=== PATIENT | male | born 1945 | race Caucasian/White ===

== ENCOUNTER → 2017-01-14 | Outpatient (CLI) | payer MEDICARE ==
[~2017-01-14] MED LIST: ACID CONTROL C1 EACH PO; ATOR40TA; ATOR40TA PO; BENADRYL25 MG PO; CITA20 PO; Citalopram HBr20 MG; DIPHEDRYL25 M1; LISI20; LISI20 PO; METPHE20; METPHE20 PO; VITAMIN D31000 UNIT PO
[2017-01-14 16:18] LABS: BASOPHILS ABSOLUTE AUTO 0.04 K/mm3 (0.00-0.23); BASOPHILS PERCENT AUTO 1 % (0-2); EOSINOPHILS ABSOLUTE AUTO 0.09 K/mm3 (0.00-0.68); EOSINOPHILS PERCENT AUTO 2 % (0-6); Hematocrit 42.4 % (37.0-53.0); Hemoglobin 14.5 g/dL (13.5-17.5); IMMATURE GRAN ABSOLUTE AUTO 0.01 K/mm3 (0.00-0.10); IMMATURE GRAN PERCENT AUTO 0 % (0-1); LYMPHOCYTES ABSOLUTE AUTO 1.28 K/mm3 (0.84-5.20); LYMPHOCYTES PERCENT AUTO 21 % (21-46); MONOCYTES ABSOLUTE AUTO 0.45 K/mm3 (0.16-1.47); MONOCYTES PERCENT AUTO 8 % (4-13); Mean Corpuscular HGB 30.5 pg (26.0-34.0); Mean Corpuscular HGB Conc 34.2 g/dL (31.5-36.5); Mean Corpuscular Volume 89 fL (80-100); Mean Platelet Volume 9.1 fL (9.1-12.4); NEUTROPHILS ABSOLUTE AUTO 4.13 K/mm3 (1.96-9.15); NEUTROPHILS PERCENT AUTO 69 % (41-73); Platelet Count 228 K/mm3 (150-400); RDW Coefficient Variation 11.6 % (11.7-14.2); RDW Standard Deviation 37.3 fL (35.1-46.3); Red Blood Cell Count 4.75 M/mm3 (4.30-5.90)
[2017-01-14 16:26] LABS: Albumin, Blood 4.2 g/dL (3.4-5.0); Albumin/Globulin Ratio 1.3 (0.8-1.8); Bilirubin, Total 0.8 mg/dL (0.1-1.0); Bun/Creatinine Ratio 16.8 (12.0-20.0); Calcium, Blood 9.2 mg/dL (8.5-10.1); Creatinine, Blood 1.43 mg/dL (0.60-1.20); Globulin, Blood 3.2 g/dL (2.2-4.0); Potassium, Blood 3.9 mmol/L (3.5-5.5); Total Protein, Blood 7.4 g/dL (6.4-8.2)
== END | disposition home or self-care (01) ==
LOC: LAB EV 16:09
PROVIDERS: Physician Assistant
DX: R10.13 Epigastric pain (principal)
CPT/HCPCS: 80053; 83690; 85025

== ENCOUNTER → 2017-05-15 | Outpatient (CLI) | payer MEDICARE | LOC: LAB 08:00 → LAB SHORT 08:00 | DX: R10.9 Unspecified abdominal pain (principal) | CPT/HCPCS: 87338 ==

== ENCOUNTER → 2018-02-05 | Outpatient (CLI) | payer MEDICARE ==
[2018-02-07 17:24] LABS: Adenovirus F 40/41 Not Detected (NOT DETECT); Astrovirus Not Detected (NOT DETECT); Campylobacter Sp Not Detected (NOT DETECT); Cryptosporidium Not Detected (NOT DETECT); Cyclospora Cayetanensis Not Detected (NOT DETECT); E. Coli O157 Not Detected (NOT DETECT); Entamoeba Histolytica Not Detected (NOT DETECT); Enteroaggregative E. coli-EAEC Not Detected (NOT DETECT); Enteropathogenic E. coli-EPEC Not Detected (NOT DETECT); Enterotoxigenic E. coli-ETEC Not Detected (NOT DETECT); Giardia Lamblia Not Detected (NOT DETECT); Norovirus GI/GII Not Detected (NOT DETECT); Plesiomonas Shigelloides Not Detected (NOT DETECT); Rotavirus A Not Detected (NOT DETECT); Salmonella Sp Not Detected (NOT DETECT); Sapovirus Not Detected (NOT DETECT); Shiga Toxin-prod E. coli-STEC Not Detected (NOT DETECT); Shigella/Enteroin E. coli-EIEC Not Detected (NOT DETECT); Vibrio Cholerae Not Detected (NOT DETECT); Vibrio Sp Not Detected (NOT DETECT); Yersinia Enterocolitica Not Detected (NOT DETECT)
[2018-02-08 13:25] LABS: Stool Occult Bld Immuno 1 Negative (NEGATIVE); Stool Occult Bld Immuno 2 Negative (NEGATIVE)
== END | disposition home or self-care (01) ==
LOC: LAB 17:19 → LAB SHORT 17:19 → LAB FUT 01-30 10:50
PROVIDERS: Internal Medicine Gastroenterology
DX: R10.33 Periumbilical pain (principal); R19.7 Diarrhea, unspecified
CPT/HCPCS: 87507; G0328

== ENCOUNTER 2018-02-12 13:03 | Day surgery (SDC) | payer MEDICARE ==
[~2018-02-12] VITALS: Ht 172.7 cm; Wt 77.8 kg
== END 2018-02-12 15:50 | disposition home or self-care (01) ==
LOC: ORSCSDS 13:03
PROVIDERS: Internal Medicine Gastroenterology
PROC: 0DB68ZX Excision of Stomach, Via Natural or Artificial Opening Endoscopic, Diagnostic (ICD-10-PCS; principal; 2018-02-12 15:15)
DX: R10.13 Epigastric pain (principal); K44.9 Diaphragmatic hernia without obstruction or gangrene; K29.60 Other gastritis without bleeding; I10 Essential (primary) hypertension; E78.5 Hyperlipidemia, unspecified; Z79.899 Other long term (current) drug therapy
CPT/HCPCS: 87081; J7120

== ENCOUNTER 2019-10-12 04:53 | Inpatient (IN) | payer MEDICARE ==
[~2019-10-12] VITALS: Ht 175.3 cm; Wt 73.0 kg
[2019-10-12 05:24] LABS: BASOPHILS ABSOLUTE AUTO 0.03 K/mm3 (0.00-0.23); BASOPHILS PERCENT AUTO 0 % (0-2); EOSINOPHILS ABSOLUTE AUTO 0.09 K/mm3 (0.00-0.68); EOSINOPHILS PERCENT AUTO 1 % (0-6); Hematocrit 40.4 % (37.0-53.0); Hemoglobin 13.3 g/dL (13.5-17.5); IMMATURE GRAN ABSOLUTE AUTO 0.04 K/mm3 (0.00-0.10); IMMATURE GRAN PERCENT AUTO 0 % (0-1); LYMPHOCYTES ABSOLUTE AUTO 0.72 K/mm3 (0.84-5.20); LYMPHOCYTES PERCENT AUTO 6 % (21-46); MONOCYTES ABSOLUTE AUTO 0.78 K/mm3 (0.16-1.47); MONOCYTES PERCENT AUTO 7 % (4-13); Mean Corpuscular HGB 30.5 pg (26.0-34.0); Mean Corpuscular HGB Conc 32.9 g/dL (31.5-36.5); Mean Corpuscular Volume 93 fL (80-100); NEUTROPHILS ABSOLUTE AUTO 10.13 K/mm3 (1.96-9.15); NEUTROPHILS PERCENT AUTO 86 % (41-73); RDW Coefficient Variation 12.2 % (11.7-14.2); RDW Standard Deviation 42.2 fL (35.1-46.3); Red Blood Cell Count 4.36 M/mm3 (4.30-5.90); White Blood Cell Count 11.79 K/mm3 (4.00-11.30)
[2019-10-12 05:36] LABS: Mean Platelet Volume 9.1 fL (9.1-12.4); Platelet Count 206 K/mm3 (150-400)
[2019-10-12 05:41] LABS: Alanine Aminotransfer (ALT/SGP 21 U/L (12-78); Albumin, Blood 3.3 g/dL (3.4-5.0); Albumin/Globulin Ratio 0.9 (0.8-1.8); Alk Phos 64 U/L (50-136); Anion Gap 7 mmol/L (6-16); Aspartate Aminotrans (AST/SGOT 22 U/L (12-37); Bilirubin, Total 1.1 mg/dL (0.1-1.0); Blood Urea Nitrogen 18 mg/dL (8-24); Bun/Creatinine Ratio 16.8 (12.0-20.0); CO2, Blood 23 mmol/L (21-32); Calcium, Blood 8.7 mg/dL (8.5-10.1); Chloride, Blood 101 mmol/L (98-108); Creatinine, Blood 1.07 mg/dL (0.60-1.20); Globulin, Blood 3.5 g/dL (2.2-4.0); Glomerular Filtration Rate >60 (60-); Glucose, Blood 109 mg/dL (70-99); Potassium, Blood 4.3 mmol/L (3.5-5.5); Sodium, Blood 131 mmol/L (136-145); Total Protein, Blood 6.8 g/dL (6.4-8.2)
[2019-10-12 07:14] LABS: Source, Urine Clean Catch
[2019-10-12 07:23] LABS: Appearance, Urine Clear (Clear); Bilirubin, Urine Neg (Neg); Blood, Urine 2+ (Neg); Color, Urine Yellow (P-Yellow); Glucose Qualitative, Urine Neg (Neg); Ketones, Urine 2+ (Neg); Leukocyte Esterase, Urine Neg (Neg); Nitrite, Urine Neg (Neg); Protein, Urine Neg (Neg); Specific Gravity, Urine 1.015 (1.003-1.022); Urobilinogen, Urine NORM (Normal)
[2019-10-12 07:32] LABS: Bacteria Not Seen /hpf; Mucus Light (0-Heavy); Squamous Epithelial Cells Not Seen /hpf (Few); White Blood Cells, Urine 0-2 /hpf (0-5)
--- NOTE | 2019-10-12 14:11 | NUR ---
PACU STAFF CALLED TO INFORM RN THAT THEY WERE COMING TO GET PT SOON TO HAVE PROCEDURE. PT RECENTLY HAD ELEVATED TEMPERATURE 102.9 ON TEMPANIC AND 101.6 ORALLY. PT EDUCATED ON I/S, DEMONSTRATED WELL. GABE REPORTED TALKING TO DR ANDERSON AND REPORTED THAT REPORTS TO CONT PLAN OF PT TO HAVE PROCEDURE.
--- NOTE | 2019-10-12 14:30 | NUR ---
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
--- NOTE | 2019-10-12 16:55 | NUR ---
SHIFT SUMMARY PT NEW ADMIT TODAY. PT CURRENTLY OUT OF ROOM FOR PROCEDURE. PT HAD ELEVATED TEMP PRIOR TO SURGERY, SEE OTHER NOTES. PT BEEN PLEASANT AND COOPERATIVE, A/O. PT WAS INSTRUCTED ON I/S EARLIER TODAY. PT DENIED MUCH PAIN AT ALL SINCE TO SURGICAL FLOOR. PT RESTED QUIETLY WHEN NOT DISTURBED.
--- NOTE | 2019-10-12 18:11 | NUR ---
PT BACK FROM HAVING PROCEDURE. PT HAS LAP SITES WITH GAUZE AND CLEAR DRESSING IN PLACE. PT HAS MO IN PLACE. PT REPORTS PAIN 5/10, DENIES NAUSEA, CP/SOB. PT DENIES WANTING PAIN MEDICATION. DISCUSSED PAIN MGMT, CONT TO DENY WANTING PAIN MEDICATION.
[2019-10-13 04:21] LABS: BASOPHILS ABSOLUTE AUTO 0.01 K/mm3 (0.00-0.23); BASOPHILS PERCENT AUTO 0 % (0-2); EOSINOPHILS PERCENT AUTO 0 % (0-6); Hematocrit 36.4 % (37.0-53.0); Hemoglobin 12.1 g/dL (13.5-17.5); IMMATURE GRAN ABSOLUTE AUTO 0.04 K/mm3 (0.00-0.10); IMMATURE GRAN PERCENT AUTO 0 % (0-1); LYMPHOCYTES PERCENT AUTO 5 % (21-46); MONOCYTES ABSOLUTE AUTO 0.64 K/mm3 (0.16-1.47); MONOCYTES PERCENT AUTO 5 % (4-13); Mean Corpuscular HGB 30.7 pg (26.0-34.0); Mean Corpuscular HGB Conc 33.2 g/dL (31.5-36.5); Mean Corpuscular Volume 92 fL (80-100); Mean Platelet Volume 8.9 fL (9.1-12.4); NEUTROPHILS ABSOLUTE AUTO 11.38 K/mm3 (1.96-9.15); NEUTROPHILS PERCENT AUTO 90 % (41-73); Platelet Count 174 K/mm3 (150-400); RDW Coefficient Variation 12.2 % (11.7-14.2); RDW Standard Deviation 41.8 fL (35.1-46.3); Red Blood Cell Count 3.94 M/mm3 (4.30-5.90); White Blood Cell Count 12.67 K/mm3 (4.00-11.30)
[2019-10-13 04:37] LABS: Bun/Creatinine Ratio 14.9 (12.0-20.0); Creatinine, Blood 1.34 mg/dL (0.60-1.20); Potassium, Blood 4.1 mmol/L (3.5-5.5)
--- NOTE | 2019-10-13 06:00 | NUR ---
PATIENT STATED THAT HE HAD MILD PAIN IN HIS ABDOMENT LAST NIGHT, HE DECLINED THE NEED FOR PAIN MEDICATION. 3 LAP SITES ARE C/D/I. MO DRAIN DRAINED S/S FLUID 120CC INITIALY AFTER OR, THE, NO MORE THAT 5 CC FOR THE REST OF THE SHIFT. INDEPENDENT TO THE BATHROOM. CALL LIGHT IN REACH, PATIENT IS EAGER TO RETURN HOME.
--- NOTE | 2019-10-13 16:37 | NUR ---
SHIFT SUMMARY PT DOING WELL. DENIES PAIN. ECTOR REG DIET. LAP SITES TO ABD REMAIN CDI. MO DRAIN WITH SCANT PINK MILKY DRAINAGE. INDEP IN ROOM AND WITH AMBULATION IN HALLWAY. REPORTS PASSING GAS. USES CALL LIGHT APPROPRIATELY. POSSIBLE DISCHARGE HOME TOMORROW WITH MO DRAIN IN PLACE.
--- NOTE | 2019-10-14 04:37 | NUR ---
PATIENT WAS ABLE TO SLEEP FOR A FEW HOURS THIS AM. 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 HE UNDERSTANDS THAT IF HIS MO DRAINAGE DOES NOT CLEAR, THAT HE MAY HAVE TO STAY ANOTHER NIGHT (PER MD). HIS ABD IS SLIGHTLY DISTENDED, 3 LAP SITES WITH INTACT STERI STRIPS, WITHOUT DRAINAGE. INDEPENDENT IN THE ROOM. HE WAS HAVING PAIN IN HIS RTLQ AND RECIEVED ORAL PAIN MEDICATION WITH GOOD RELIEF. NO ACUTE CHANGES THIS SHIFT. CALL LIGHT IN PLACE, RARELY USED.
[2019-10-14 09:56] LABS: BASOPHILS ABSOLUTE AUTO 0.03 K/mm3 (0.00-0.23); BASOPHILS PERCENT AUTO 0 % (0-2); EOSINOPHILS PERCENT AUTO 1 % (0-6); Hemoglobin 12.4 g/dL (13.5-17.5); IMMATURE GRAN ABSOLUTE AUTO 0.03 K/mm3 (0.00-0.10); IMMATURE GRAN PERCENT AUTO 0 % (0-1); LYMPHOCYTES ABSOLUTE AUTO 0.73 K/mm3 (0.84-5.20); LYMPHOCYTES PERCENT AUTO 8 % (21-46); MONOCYTES ABSOLUTE AUTO 0.58 K/mm3 (0.16-1.47); MONOCYTES PERCENT AUTO 6 % (4-13); Mean Corpuscular HGB 30.9 pg (26.0-34.0); Mean Corpuscular HGB Conc 32.6 g/dL (31.5-36.5); Mean Corpuscular Volume 95 fL (80-100); Mean Platelet Volume 9.4 fL (9.1-12.4); NEUTROPHILS ABSOLUTE AUTO 8.17 K/mm3 (1.96-9.15); NEUTROPHILS PERCENT AUTO 85 % (41-73); Platelet Count 204 K/mm3 (150-400); RDW Coefficient Variation 12.5 % (11.7-14.2); RDW Standard Deviation 43.5 fL (35.1-46.3); Red Blood Cell Count 4.01 M/mm3 (4.30-5.90); White Blood Cell Count 9.64 K/mm3 (4.00-11.30)
[2019-10-14] MEDS ORDERED: AMOCLA500 PO (11:47)
[2019-10-14] MEDS ORDERED: HYDR1TAB94 PO (11:47)
--- NOTE | 2019-10-14 16:09 | NUR ---
DISCHARGE: PACKET PRINTED AND PT EDUCATED. PT SENT HOME WITH MO DRAIN, TAUGHT ABOUT MAINTANCE AND HOW TO DRAIN/RECORD. PT VERBALIZED UNDERSTANDING. PT LEFT UNIT AT 1330 ON FOOT
== END 2019-10-14 13:54 | disposition home or self-care (01) | DRG 340 ==
LOC: ER 04:53 → SURS 08:05
PROVIDERS: Emergency Medicine; ADMIT Surgery
PROC: 0DTJ4ZZ Resection of Appendix, Percutaneous Endoscopic Approach (ICD-10-PCS; principal; 2019-10-12 09:15)
DX: K35.32 Acute appendicitis with perforation, localized peritonitis, and gangrene, without abscess (principal); K21.9 Gastro-esophageal reflux disease without esophagitis; I10 Essential (primary) hypertension; Z20.828 Contact with and (suspected) exposure to other viral communicable diseases; K38.1 Appendicular concretions
CPT/HCPCS: 36415; 74177; 80048; 80053; 81001; 83690; 84484; 85025; 88304; 93005; 93010; 96365-59; 96375; 99285-25; A9270-GY; J1100; J1170; J1885; J2370; J2405; J2543; J2704; J3010; J7030; J7120; Q9967; U0002

== ENCOUNTER → 2020-01-01 | Outpatient (CLI) | payer MEDICARE ==
[~2020-01-01] MED LIST changes: +AMOCLA500 PO; +HYDR1TAB94 PO
== END | disposition home or self-care (01) ==
LOC: LAB SHORT 17:46 → LAB 17:46
DX: R30.0 Dysuria (principal); R35.0 Frequency of micturition
CPT/HCPCS: 87086

== ENCOUNTER → 2023-12-15 | Outpatient (CLI) | payer MEDICARE ==
[2023-12-19 14:49] LABS: HOURS COLLECTED 24 hr; TOTAL VOLUME 3000 mL
== END ==
LOC: LAB 11:08 → LAB SHORT 11:08
PROVIDERS: Nurse Practitioner Family
DX: G62.9 Polyneuropathy, unspecified (principal); R42 Dizziness and giddiness
CPT/HCPCS: 81050; 84156; 84166; 86335

== ENCOUNTER → 2024-06-20 | Outpatient (CLI) | payer MEDICARE ==
[2024-06-20 17:05] LABS: Adenovirus F 40/41 Not Detected (NOT DETECT); Astrovirus Not Detected (NOT DETECT); Campylobacter Sp Not Detected (NOT DETECT); Cryptosporidium Not Detected (NOT DETECT); Cyclospora Cayetanensis Not Detected (NOT DETECT); E. Coli O157 Not Detected (NOT DETECT); Entamoeba Histolytica Not Detected (NOT DETECT); Enteroaggregative E. coli-EAEC Not Detected (NOT DETECT); Enteropathogenic E. coli-EPEC Not Detected (NOT DETECT); Enterotoxigenic E. coli-ETEC Not Detected (NOT DETECT); Giardia Lamblia Not Detected (NOT DETECT); Norovirus GI/GII Not Detected (NOT DETECT); Plesiomonas Shigelloides Not Detected (NOT DETECT); Rotavirus A Not Detected (NOT DETECT); Salmonella Sp Not Detected (NOT DETECT); Sapovirus Not Detected (NOT DETECT); Shiga Toxin-prod E. coli-STEC Not Detected (NOT DETECT); Shigella/Enteroin E. coli-EIEC Not Detected (NOT DETECT); Vibrio Cholerae Not Detected (NOT DETECT); Vibrio Sp Not Detected (NOT DETECT); Yersinia Enterocolitica Not Detected (NOT DETECT)
== END ==
LOC: LAB SHORT 13:38 → LAB 13:38
PROVIDERS: Physician Assistant
DX: R19.7 Diarrhea, unspecified (principal)
CPT/HCPCS: 87507